=== PATIENT | male | born 1945 | race Caucasian/White ===

== ENCOUNTER 2021-10-16 08:55 | Inpatient (IN) | payer OTHER, MEDICARE ==
[~2021-10-16] VITALS: Ht 180.3 cm; Wt 126.4 kg
--- NOTE | ~2021-10-16 | EMS ---
[address] [address] EMS Patient Care Report Name: NEO BARBOSA Room #: 170-10 ADM IN M.R.#: [id number] Admission: 10/16/21 Attend Phys: Rojas Tirado MD Discharge: Date of : 49 Report #: [id number] THIS REPORT FOR: //name// Report Transmitted: 10/16/2021 19:53 EMS Care Summary [place], [place]/[facility] Incident [phone] @ 10/16/2021 08:15 Incident Location [address] [place] [address] Patient BEBA BARBOSA Male, 75 Years 1945 Patient Address [address] [place] [address] Patient History Diabetes, Patient Allergies No known allergies, Patient Medications Metformin, Chief Complaint Syncope Disposition Transported No Lights/[place] Reason Unconscious/Fainting Transported To [facility] Narrative Pt stated he started feeling sick , weak and like he was going to have diarrhea and went to the bathroom and sat on the toilet and per Pt"Then next thing I knew I woke up and i vomited on myself". Pt stated he cleaned himself up but still was feeling like he had to go to the bathroom and was going to vomit again. Pt stated he did not feel safe walking by himself and when someone came [address] [address] EMS Patient Care Report Name: NEO BARBOSA Room #: 170-10 ADM IN .R.#: [id number] Admission: 10/16/21 Attend Phys: Rojas Tirado MD Discharge: Date of : 49 Report #: [id number] back into the bathroom he asked for help and they called 911 for Pt. Pt denied any shortness of breath , no chest pain and is a GCS 15. Pt found sitting in chair in [employer] , Pt is extremely pale , diaphoretic and cool to the touch. Pt has vomit noted on his shirt and jacket and Pt is incontinence of urine and stool as well. Pt stated he feels weak and needed help up out of the chair he was sitting in onto the stretcher to be transported to the ER. Pt is with normal sinus rhythm on ekg and Pt 12 lead showed NSR with no other ectopy noted. Pt also stated he felt as if he was going to vomit and EMS game Pt 4 mg of Zofran I.V and Pt stated a few minutes later he no longer feels sick or if he needs to vomit. Pt is with no other changes noted on EKG during transport to ER and Pt received by RN in ER. Initial Vitals @08:36P: 69,BP: 112/66,CO: 1,SpO2: 97, @08:32P: 88,BP: 113/65,CO: 1,SpO2: 95, @08:29P: 89,R: 18,Pain: 0/10,GCS: 15,SpO2: 98, Assessments @08:21MENTAL:Place Oriented,Person Oriented,Time Oriented,Event Oriented,SKIN:Cold,Diaphoresis,Pale,HEENT:Head/Face: No Abnormalities,Neck/Airway: No Abnormalities,LUNG SOUNDS:General: Nausea,Left Upper: Other,General: Vomiting,Left Upper: Tenderness,Left Upper: Guarding,Right Upper: Tenderness,Right Upper: Other,Right Upper: Guarding,Right Lower: Tenderness,Right Lower: Guarding,Right Lower: Other,ABDOMEN:General: Nausea,Left Upper: Other,General: Vomiting,Left Upper: Tenderness,Left Upper: Guarding,Right Upper: Tenderness,Right Upper: Other,Right Upper: Guarding,Right Lower: Tenderness,Right Lower: Guarding,Right Lower: Other,PELVIS//GI:Incontinence,EXTREMITIES:Capillary Refill: Left Upper: < 2 Sec,Left Arm: No Abnormalities,Right Arm: No Abnormalities,Left Leg: No Abnormalities,Right Leg: No Abnormalities,PULSE:Radial: 2+ Normal,NEURO:No Abnormalities,@08:43MENTAL:Person Oriented,Place Oriented,Time Oriented,Event Oriented,SKIN:Pale,HEENT:Head/Face: No Abnormalities,Neck/Airway: No Abnormalities,LUNG SOUNDS:General: No Abnormalities,ABDOMEN:General: No Abnormalities,PELVIS//GI:Incontinence,EXTREMITIES:Capillary Refill: Right Upper: < 2 Sec,Left Arm: No Abnormalities,Right Arm: No Abnormalities,Left Leg: No Abnormalities,Right Leg: No Abnormalities,PULSE:Radial: 2+ Normal,NEURO:No Abnormalities, Impression Syncope / Fainting Procedures @08:28 12-Lead ECG Response: UnchangedSucceeded @08:21 ALS Assessment Response: UnchangedSucceeded @PTA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: 4 Device: Nasal Cannula (NC) Response: UnchangedSucceeded [facility] [address] [place] [address] EMS Patient Care Report Name: NEO BARBOSA Room #: 397-10 ADM IN Amrit#: [id number] Admission: 10/16/21 Attend Phys: Rojas Tirado MD Discharge: Date of : 49 Report #: [id number] @08:24 3-Lead ECG Response: UnchangedSucceeded @08:31 IV Therapy - Saline Lock 0cc (18 ga) Site: Antecubital-Left Response: UnchangedSucceeded @08:32 Aspirin - 324 Milligrams (mg) - Oral Response: Unchanged @08:36 Zofran - 4 Milligrams (mg) - Intravenous (IV) Response: Improved 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,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: 4 Device: Nasal Cannula (NC) Response: UnchangedSucceeded, 08:13,Call Received 08:13,Dispatch Notified 08:15,Dispatched 08:15,En Route 08:20,On Scene 08:21,At Patient 08:21,ALS Assessment,Response: UnchangedSucceeded, 08:24,3-Lead ECG,Response: UnchangedSucceeded, 08:28,12-Lead ECG,Response: UnchangedSucceeded, 08:29,BP: / M,PULSE: 89,RR: 18 R,SPO2: 98 Ox,ETCO2: ,BG: ,PAIN: 0,GCS: 15, 08:31,IV Therapy - Saline Lock 0cc 18 ga Site: Antecubital-Left,Response: UnchangedSucceeded, 08:32,Aspirin - 324 Milligrams (mg) - Oral,Response: Unchanged 08:32,BP: 113/65 M,PULSE: 88,RR: R,SPO2: 95 Ox,ETCO2: ,BG: ,PAIN: ,GCS: , 08:36,Zofran - 4 Milligrams (mg) - Intravenous (IV),Response: Improved 08:36,BP: 112/66 M,PULSE: 69,RR: R,SPO2: 97 Ox,ETCO2: ,BG: ,PAIN: ,GCS: , 08:39,Depart Scene 08:44,At Destination 09:09,Call Closed Disclaimer v1.1 Copyright 2021 [employer] This EMS Care Summary contains data elements from the applicable legal record (which may be displayed differently). It is designed to provide pertinent information for the following purposes: continuity of care, clinical quality, and state data reporting. The complete legal record is available to ED staff and administrators of the receiving hospital in [facility] Patient Tracker. All data is provided "as is."
[2021-10-16 08:55] VITALS: BP 110/58
[2021-10-16 09:08] LABS: ABSOLUTE NEUTROPHILS 8.8 thou/uL (1.4-8.2); BASOPHILS 0.9 % (0.0-2.0); EOSINOPHILS 1.9 % (0.0-3.0); HEMATOCRIT 43.2 % (42.0-52.0); HEMOGLOBIN 13.9 gm/dL (14.0-18.0); LYMPHOCYTES 14.3 % (24.0-44.0); MCH 28.8 pg (26.0-34.0); MCHC 32.1 g/dL (28.0-37.0); MCV 89.8 fL (80.0-100.0); PLATELET COUNT 217 thou/uL (150-400); POLYS 75.9 % (36.0-66.0); RBC 4.82 mil/uL (4.50-6.00); RDW 14.6 % (10.5-14.5); WBC 11.6 thou/uL (4.0-11.0)
[2021-10-16 09:21] LABS: CALCIUM 9.8 mg/dL (8.5-10.1); CREATININE 1.4 mg/dL (0.7-1.3); POTASSIUM 4.3 mmol/L (3.5-5.1)
[2021-10-16 09:31] LABS: ALBUMIN 3.8 g/dL (3.4-5.0); TOTAL BILIRUBIN 0.5 mg/dL (0.2-1.0); TOTAL PROTEIN 7.6 g/dL (6.4-8.2)
[2021-10-16] MEDS ORDERED: TAMSULOSIN HCL0.4 MG PO (11:55)
[2021-10-16] MEDS ORDERED: PRINIVIL40 MG PO (11:55)
[2021-10-16] MEDS ORDERED: AMLODIPINE BESY10 MG PO (11:56)
[2021-10-16] MEDS ORDERED: HUMALOG100 UNIT/1 SUBQ ×6 (15:44→19:46)
--- NOTE | 2021-10-16 15:44 | 2DMMODE ---
[facility] [place] [address] 2 D/M-MODE ECHOCARDIOGRAM Name: NEO BARBOSA Room #: 170-10 ADM IN M.R.#: [id number] Admission: 10/16/21 Attend Phys: Rojas Tirado MD Discharge: Date of : 49 Report #: [id number] THIS REPORT FOR: cc: [facility] - Clinic physician unknown [facility] - Clinic physician unknown Imtiaz Brannon MD [facility] ~ APPROVED REPORT Study performed: 10/16/2021 14:42:41 EXAM: Comprehensive 2D, Doppler, and color-flow Echocardiogram Patient Location: ER Room #: 10 Status: on-call BSA: 2.15 HR: 93 bpm BP: 110/58 mmHg Rhythm: NSR Other Information Study Quality: Adequate Risk Factors: Cardiac Risk Factors: HTN Indications Diabetes Hypertension/HDD 2D Dimensions IVSd: 11.95 (7-11mm) LVOT Diam: 20.28 (18-24mm) LVDd: 59.88 mm PWd: 11.47 (7-11mm) Ascending Ao: 37.43 (22-36mm) LVDs: 39.73 (25-40mm) Left Atrium: 54.29 (27-40mm) Aortic Root: 33.91 mm Volumes Left Atrial Volume (Systole) Single Plane 4CH: 65.60 mL Single Plane 2CH: 31.61 mL Biplane LA Volume: 52.00 mL LA ESV Index: 24.00 mL/m2 Aortic Valve AoV Peak Doc.: 2.66 m/s [facility] [place] [address] [place] [address] 2 D/M-MODE ECHOCARDIOGRAM Name: NEO BARBOSA BEBA Room #: 170-10 ADM IN M.Julianne.#: [id number] Admission: 10/16/21 Attend Phys: Rojas Tirado MD Discharge: Date of : 49 Report #: [id number] AO Peak Gr.: 28.35 mmHg LVOT Max P.38 mmHg AO Mean Gr.: 18.19 mmHg LVOT Mean P.37 mmHg AO V2 Mean: 2.03 m/s LVOT Max V: 1.26 m/s AO V2 VTI: 57.51 cm LVOT Mean V: 1.00 m/s DAYNE (VTI): 1.81 cm2 LVOT V1 VTI: 32.17 cm DAYNE Vmax: 1.53 cm2 SV (LVOT): 103.87 mL Mitral Valve E/A Ratio: 1.0 MV Decel. Time: 187.23 ms MV E Max Doc.: 0.66 m/s MV A Doc.: 0.65 m/s MV PHT: 54.30 ms IVRT: 69.20 ms Pulmonary Valve PV Peak Doc.: 1.00 m/s PV Peak Gr.: 3.99 mmHg Pulmonary Vein P Vein A: 0.49 m/s P Vein A Dur.: 120.0 msec Tricuspid Valve TR Peak Doc.: 2.62 m/s RAP Estimate: 7.00 mmHg TR Peak Gr.: 27.45 mmHg RVSP: 24.00 mmHg Left Ventricle Left ventricle is dilated. There is normal LV segmental wall motion. Mild concentric left ventricular hypertrophy. Left ventricular systolic function is normal. The left ventricular ejection fraction is within the normal range. LVEF is 60-65%. Transmitral Doppler flow pattern suggests impaired LV relaxation. Right Ventricle The right ventricle is normal size. The right ventricular systolic function is normal. Atria The left atrium size is normal. The right atrium size is normal. Aortic Valve Aortic valve is trileaflet. Trace aortic regurgitation. Mild aortic stenosis. Highest mean aortic valve gradient is __18__mmHg. Peak aortic valve gradient is 28_mmHg. Calculated DAYNE by the [facility] [address] [place] [address] 2 D/M-MODE ECHOCARDIOGRAM Name: NEO BARBOSA Room #: 170-10 ADM IN .R.#: [id number] Admission: 10/16/21 Attend Phys: Rojas Tirado MD Discharge: Date of : 49 Report #: [id number] equation is _1.8 cm2. Mitral Valve The mitral valve is normal in structure. Mild mitral regurgitation. No evidence of mitral valve stenosis. Tricuspid Valve The tricuspid valve is normal in structure. Mild tricuspid regurgitation. PAP 34 mmHg Pulmonic Valve The pulmonary valve is normal in structure. There is no pulmonic valvular regurgitation. Great Vessels The aortic root is normal in size. IVC is normal in size and collapses >50% with inspiration. Pericardium There is no pericardial effusion. There is no pleural effusion. <Conclusion> Normal left ventricular size with mild concentric hypertrophy Ejection fraction 60-65% Normal right ventricular size/function Normal atrial size Mild aortic valve stenosis aortic valve area estimate 1.8 cm and a mean gradient of 18 mmHg Mild mitral valve insufficiency Mild tricuspid valve insufficiency Pulmonary systolic pressure estimated 34 mmHg No pericardial effusion Normal aortic root size. <ELECTRONICALLY SIGNED> By: Imtiaz Brannon MD, FACC 10/16/21 1543 [id number] Imtiaz Brannon MD, FACC /INF
[2021-10-16] MEDS ORDERED: ASA81BEC PO (15:45)
[2021-10-16] MEDS ORDERED: VIAGRA25 MG PO (15:46)
[2021-10-16] MEDS ORDERED: PREDNISOLONE ACE5 ML LT. EYE (15:47)
[2021-10-16] MEDS ORDERED: GLUCOPHAGE XR750 MG PO (15:49)
[2021-10-16] MEDS ORDERED: LOVAZA1000 MG PO (15:49)
[2021-10-16] MEDS ORDERED: LIPITOR10 MG PO (15:50)
[2021-10-16] MEDS ORDERED: LISINOPRIL20 MG PO (15:51)
[2021-10-16] MEDS ORDERED: LANTUS SUBQ ×4 (15:51→19:49)
[2021-10-16 16:57] LABS: URINE BILIRUBIN NEGATIVE (Negative); URINE BLOOD NEGATIVE (Negative); URINE CLARITY CLEAR; URINE COLOR YELLOW; URINE GLUCOSE-RANDOM* 3+ (Negative); URINE KETONES TRACE (Negative); URINE LEUKOCYTES-REFLEX NEGATIVE (Negative); URINE NITRITE-REFLEX NEGATIVE (Negative); URINE PROTEIN (DIPSTICK) NEGATIVE (Negative); URINE UROBILINOGEN 0.2 E.U./dl (0.2-1.0)
[2021-10-17 02:00] VITALS: BP 113/58
--- NOTE | 2021-10-17 05:29 | NUR ---
PT ADMITED TO ROOM 201, ORIENTED TO ROOM AND UNIT, PT UP ADLIB TO BR, NO C/O PAIN, VSS SATING 97% ON RA, WILL CON'T TO MONITOR PER PPOC.
[2021-10-17 06:03] LABS: ABSOLUTE NEUTROPHILS 5.9 thou/uL (1.4-8.2); BASOPHILS 1.4 % (0.0-2.0); EOSINOPHILS 2.2 % (0.0-3.0); HEMATOCRIT 36.8 % (42.0-52.0); HEMOGLOBIN 12.1 gm/dL (14.0-18.0); MCHC 32.8 g/dL (28.0-37.0); MCV 88.7 fL (80.0-100.0); MONOCYTES 8.5 % (1.0-8.0); PLATELET COUNT 184 thou/uL (150-400); POLYS 68.9 % (36.0-66.0); RBC 4.15 mil/uL (4.50-6.00); RDW 14.7 % (10.5-14.5); WBC 8.6 thou/uL (4.0-11.0)
[2021-10-17 06:06] LABS: GLYCOHEMOGLOBIN (HGB A1C) 6.9 % (4.8-5.6)
[2021-10-17 06:13] LABS: CALCIUM 8.5 mg/dL (8.5-10.1); CREATININE 1.1 mg/dL (0.7-1.3); MAGNESIUM 2.2 mg/dL (1.8-2.4); POTASSIUM 4.3 mmol/L (3.5-5.1)
[2021-10-17 07:23] VITALS: BP 114/60
--- NOTE | 2021-10-17 10:51 | EKG ---
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
[2021-10-17 11:26] VITALS: BP 125/70
[2021-10-17 13:32] LABS: ABSOLUTE RETIC COUNT 0.1135 10^6/uL; HEMATOCRIT 40.6 % (42.0-52.0); HEMOGLOBIN 13.1 gm/dL (14.0-18.0); OBSERVED RETIC COUNT 2.51 % (0.6-2.6)
[2021-10-17 14:02] LABS: FOLIC ACID 7.2 ng/mL (8.6-58.9)
[2021-10-17] MEDS ORDERED: FOLIC ACID1 MG PO ×2 (14:53→16:40)
[2021-10-17] MEDS ORDERED: CYANOCOBAL1000 MCG/1 IM ×2 (14:53→16:43)
[2021-10-17 16:07] VITALS: BP 125/70
[2021-10-17] MEDS ORDERED: LEVO-T25 MCG PO ×2 (16:33→16:43)
--- NOTE | 2021-10-17 16:45 | NUR ---
PATIENT DISCHARGED HOME, EDUCATION DONE AT BEDSIDE WITH PATIENT NO QUESTIONS OR CONCERNS AT TIME OF TEACHING. IV AND TELE REMOVED. TAKEN IN WHEELCHAIR BY STAFF TO DAUGHTER WHO WAITS IN PRIVATE VEHICLE.
[2021-10-24] MEDS ORDERED: VITAMIN B-121000 MC2 SUBLING (15:50)
[2021-10-24] MEDS ORDERED: AZITHROMYCIN500 MG PO (15:53)
== END 2021-10-17 17:19 | disposition home or self-care (01) | DRG 871 ==
LOC: ER 08:55 → EROBS 11:35 → 2N 10-17 01:17
PROVIDERS: Emergency Medicine; Internal Medicine; Nurse Practitioner; ADMIT Internal Medicine; ATTEND Internal Medicine
DX: A41.9 Sepsis, unspecified organism (principal); J18.9 Pneumonia, unspecified organism; N17.9 Acute kidney failure, unspecified; Z20.822 Contact with and (suspected) exposure to COVID-19; G47.33 Obstructive sleep apnea (adult) (pediatric); M19.90 Unspecified osteoarthritis, unspecified site; E66.01 Morbid (severe) obesity due to excess calories; R53.81 Other malaise; E78.5 Hyperlipidemia, unspecified; N18.9 Chronic kidney disease, unspecified; I35.0 Nonrheumatic aortic (valve) stenosis; E53.8 Deficiency of other specified B group vitamins; D64.9 Anemia, unspecified; E11.22 Type 2 diabetes mellitus with diabetic chronic kidney disease; I12.9 Hypertensive chronic kidney disease with stage 1 through stage 4 chronic kidney disease, or unspecified chronic kidney disease; M47.895 Other spondylosis, thoracolumbar region; I95.1 Orthostatic hypotension; Z68.38 Body mass index [BMI] 38.0-38.9, adult; Z79.82 Long term (current) use of aspirin; Z79.899 Other long term (current) drug therapy

== ENCOUNTER → 2021-11-18 | Outpatient (CLI) | payer OTHER, MEDICARE ==
[~2021-11-18] MED LIST: ADMELOG SO100 UNIT/1 SUBQ; AMLODIPINE BESY10 MG PO; ASA81BEC PO; AZITHROMYCIN500 MG PO; CYANOCOBAL1000 MCG/1 IM; FOLIC ACID1 MG PO; GLUCOPHAGE XR750 MG PO; HUMALOG100 UNIT/1 SUBQ; LANTUS SUBQ; LEVO-T25 MCG PO; LIPITOR10 MG PO; LISINOPRIL20 MG PO; LOVAZA1000 MG PO; PREDNISOLONE ACE5 ML LT. EYE; PRINIVIL40 MG PO; TAMSULOSIN HCL0.4 MG PO; VIAGRA25 MG PO; VITAMIN B-121000 MC2 SUBLING
== END ==
LOC: SJCVCIMAG 07:47
PROVIDERS: ATTEND Internal Medicine Cardiovascular Disease
DX: R55 Syncope and collapse (principal); I35.0 Nonrheumatic aortic (valve) stenosis; I12.9 Hypertensive chronic kidney disease with stage 1 through stage 4 chronic kidney disease, or unspecified chronic kidney disease; G47.33 Obstructive sleep apnea (adult) (pediatric); N18.9 Chronic kidney disease, unspecified; E78.00 Pure hypercholesterolemia, unspecified; Z79.82 Long term (current) use of aspirin; Z79.899 Other long term (current) drug therapy; Z79.84 Long term (current) use of oral hypoglycemic drugs; E11.22 Type 2 diabetes mellitus with diabetic chronic kidney disease